=== PATIENT | female | born 1970 | race Caucasian/White ===

== ENCOUNTER → 2019-11-14 | Outpatient (CLI) | payer OTHER | END | disposition home or self-care (01) | LOC: CFH 13:51 | PROVIDERS: ATTEND Otolaryngology | DX: J95.5 Postprocedural subglottic stenosis (principal) | CPT/HCPCS: 70490 ==

== ENCOUNTER → 2020-02-19 | Outpatient (CLI) | payer OTHER ==
[~2020-02-19] MED LIST: NONE PER PT
== END | disposition home or self-care (01) ==
LOC: STAR 09:44
PROVIDERS: ATTEND Otolaryngology
DX: Z20.828 Contact with and (suspected) exposure to other viral communicable diseases (principal); J95.5 Postprocedural subglottic stenosis
CPT/HCPCS: 87635

== ENCOUNTER 2020-02-25 09:39 | Outpatient (CLI) | payer OTHER | END 2020-02-25 23:59 | disposition home or self-care (01) | LOC: STAR 09:39 | PROVIDERS: ATTEND Anesthesiology | DX: Z20.822 Contact with and (suspected) exposure to COVID-19 (principal) | CPT/HCPCS: 87635 ==

== ENCOUNTER 2020-02-29 10:28 | Day surgery (SDC) | payer OTHER ==
[2020-02-19 10:13] VITALS: BP 143/87
[~2020-02-29] VITALS: Ht 175.3 cm; Wt 73.6 kg
[2020-02-29] MEDS ORDERED: NO MEDS PER PT (10:51)
[2020-02-29] MEDS ORDERED: LACTATED RINGERS 1,000 ML IV SCH (11:00)
[2020-02-29] MEDS ORDERED: CHLORHEXIDINE 15 ML UDC MM ONE (11:00)
[2020-02-29 11:22] LABS: HCG UR SG 1.013 (1.003-1.030)
[2020-02-29] MEDS ORDERED: HYDROmorphone 1 MG/ML, 1ML INJ IVPush PRN (12:00)
[2020-02-29] MEDS ORDERED: PROMETHAZINE 25 MG/ML, 1ML IVPush PRN (12:00)
[2020-02-29] MEDS ORDERED: ONDANSETRON 2MG/ML, 2ML IVPush PRN (12:00)
[2020-02-29] MEDS ORDERED: LABETALOL 5MG/ML, 20ML IV PRN (12:00)
[2020-02-29] MEDS ORDERED: ACETAMINOPHEN 325 MG TABLET PO PRN (12:00)
[2020-02-29] MEDS ORDERED: FENTANYL PF 100 MCG/2ML IV PRN (12:00)
[2020-02-29] MEDS ORDERED: hydrALAzine 20 MG/ML, 1ML IV PRN (12:00)
[2020-02-29] MEDS ORDERED: MEPERIDINE/PF 25MG/0.5ML IVPush PRN (12:00)
[2020-02-29] MEDS ORDERED: OXYcodone 5 MG/5 ML ORAL.SOL UDC PO PRN (12:00)
[2020-02-29] MEDS ORDERED: FENTANYL PF 250 MCG/5ML ONE (12:19)
[2020-02-29] MEDS ORDERED: MIDAZOLAM 1 MG/ML, 2ML ONE (12:19)
[2020-02-29] MEDS ORDERED: EPINEPHRINE TOPICAL SOLN 1 MG/ML, 30ML ONE (12:29)
[2020-02-29] MEDS ORDERED: TRIAMCINOLONE ACETONIDE 40 MG/ML, 1ML ONE (12:29)
[2020-02-29] MEDS ORDERED: ONDANSETRON 2MG/ML, 2ML ONE (13:48)
[2020-02-29] MEDS ORDERED: DEXAMETHASONE 4 MG/ML, 5ML ONE (13:48)
[2020-02-29] MEDS ORDERED: PROPOFOL 10 MG/ML, 20ML ONE ×3 (13:48)
== END 2020-02-29 15:15 | disposition home or self-care (01) ==
LOC: OUT 10:28
PROVIDERS: ATTEND Otolaryngology
DX: J95.5 Postprocedural subglottic stenosis (principal); Z79.899 Other long term (current) drug therapy
CPT/HCPCS: 31529; 81025; 88305; C1726; J1100; J2250; J2405; J2704; J3010; J3301; J7120

== ENCOUNTER 2020-10-24 10:04 | Day surgery (SDC) | payer OTHER ==
[~2020-10-24] VITALS: Ht 175.3 cm; Wt 75.9 kg
[2020-10-24 11:09] VITALS: BP 150/93
== END 2020-10-24 14:32 | disposition home or self-care (01) ==
LOC: OUT 10:04
PROVIDERS: ATTEND Otolaryngology
DX: J38.6 Stenosis of larynx (principal); J42 Unspecified chronic bronchitis; Z20.822 Contact with and (suspected) exposure to COVID-19
CPT/HCPCS: 31528; 31570; 81025; 88305; J0171; J2250; J2704; J3010; J3301; J7120; U0003; U0005